=== PATIENT | female | born 1990 | race African-American/Black ===

== ENCOUNTER 2021-03-14 11:36 | Outpatient (CLI) | payer OTHER ==
[2021-03-18 11:26] VITALS: BP 90/40
--- NOTE | 2021-03-18 11:26 | SLEEP CARE CONSULTATION ---
Information from patient questionnaire entered by Jennifer Parmar. I have reviewed and concur with the information entered by Jennifer Parmar. This document represents the service I personally performed and the decisions made by me, Pedro Alexander MD, [facility]. History of Present Illness Service Date and Time: 03/14/2021 1136 Reason for Visit: New patient Chief Complaint: reports: Insomnia, Unrefreshed sleep, Fatigue, Frequent awakenings at night Date of Onset: on and off for 1.5 years Usual bedtime: 8 pm Time it takes to fall asleep: with sleep meds - 20 mins, without - hours/days Snores at night: Yes Observed to quit breathing while asleep: Yes Sleeps alone due to snoring: No Number of times waking at night: 2-4 Reasons for waking at night: reports: Pain, Bathroom, Other (unknown reasons) Toss, Turn, or Twitch while sleeping: Yes Recalls having dreams: No Usually gets out of bed at: 7:30 am Feels refreshed in the morning: No Morning headache: Yes Sleepy or fatigued during the day: Yes Ever fallen asleep while driving: Yes Takes day naps: Yes Dreams during day naps: No Prior sleep studies: No Additional HPI information: I have the pleasure of seeing Ms. Hamlin today regarding the possibility of her having obstructive sleep apnea. As you know, she is a 30 year old lady who complains of insomnia and excessive daytime sleepiness. She has had the problems for a year and a half. Her psychiatrist is treating her with trazodone 150 mg and hydroxyzine 25 mg at bedtime which is at 8 pm. She also takes Zoloft. She normally gets up at 7:30 am to be at work by 8 am. After she comes home from work at 3 pm, she would nap until dinner time. She then takes the sleeping pills and tries to go to bed again. She says that she does not want to take the pills later because they make it more difficult for her to get up in the morning. She gets up the same time on the weekend. During the day she reports feeling sleepy. [place] Sleepiness Scale score is 15. She falls asleep at work but not while driving. She has been told that she snores loudly and irregularly at night. She has also been observed to stop breathing in her sleep. She sleeps alone. She can recall waking up on the average of 2 - 4 times during the night. Most of the time she wakes up because of having to use the bathroom and pain. She has never awakened because of her own snoring, choking, or having to gasp for air. There is a lot of tossing and turning in her sleep. Generally there is no recollection of dreams. No somniloquy (sleep talking) or somnambulism (sleep walking). She wakes up with headache has headache most of the time. She reports having impaired concentration during the day. 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 Patient is Single and lives in [place]. Have you smoked in the past 12 months: No Alcohol use: Yes Alcohol amount and frequency: 1-2 drinks on special occasions, rarely Caffeine use: Yes Caffeine amount and frequency: 1-3 drinks, rarely or special occasions Family History Family history of sleep disordered breathing: Yes Family Hx Sleep Apnea: Mother: Snoring, Grandparent: Sleep apnea - Treated Allergies and Home Medications Drug allergies reviewed: Yes Home medication list reviewed: Yes (lisinopril, trazodone, hydroxyzine, Zoloft, Wellbutrin, Trulance, and BCP) Review of Systems Weight gain over past 5 years: 25 Weight loss over past 5 years: 25 Cardiovascular: reports: high blood pressure Respiratory: denies: shortness of breath, wheeze, sputum production, chronic cough, other Gastrointestinal: reports: diarrhea, abdominal pain Urinary: denies: incontinence, frequency, urgency, impotence, other Neurological: reports: headaches, head trauma, fainting or unconsciousness Psychiatric: reports: anxiety, depression Ear/Nose/Throat: reports: nasal congestion, sinus problems, dry mouth/throat, wisdom teeth removed Endocrine: reports: sluggishness, too hot or cold, excessive thirst, increased urination, other (loss of appetite) Musculoskeletal: reports: neck pain, back pain, muscle pain or cramping, mobility problems Immunologic: reports: sneezing, allergies to food or environment (environment) Physical Exam Vital signs obtained and entered by: Dr. Alexander Blood Pressure: 90/40 Cuff size: regular Heart Rate: 77 O2 Saturation: 99 Height: 6 ft Weight: 145 lb Body Mass Index: 19.6 BMI Classification: Healthy weight Neck circumference: 13 Mood/affect: Normal HEENT: No craniofacial malformation Nostrils: patent to airflow Turbinates: normal Septum: midline Mouth and throat: normal Soft palate: normal Hard palate: normal Uvula: normal Uvula visualization: 100% Mallampati Class I Tongue: normal in size Tonsils: small Chin and jaw: normal size and position Neck: normal w/o lymphadenopathy or thyromegaly Heart: regular rate and rhythm Lungs: clear bilaterally Extremities: no edema or clubbing Neurologic: intact, no focal deficits Impression and Plan IMPRESSION: 1. Insomnia, most likely due to mental disorderdepression. This patient spends all her free time in bed, and, therefore, is unable to sleep half of the time. Counseling will be more beneficial than using medication. The patient was advised to not spend more than 8 hours in bed a day. If she gets up at 7:30 am, she must not go to bed until 11:30 pm. Most likely, by that time she will be quite sleepy on her own, especially if she avoids napping during the day. A sleep study will be performed to rule out sleep disrupting conditions. Plan: 1. Schedule polysomnography and return in 1 to 2 weeks after the study to discuss result and initiate therapy. 2. Maintain a regular wake up time and spend no more than 8 hours in bed at night. Avoid naps. If she gets up at 7:30 am, then she must not go to bed until 11:30 pm. 3. Once a regular sleep-wake pattern is achieved, she should be weaned off the sleeping pills. 4. Further counseling and cognitive behavior therapy (CBT) per her psychiatrist and psychologist. Follow up with: Other (psychiatrist) Visit Type: In Office Time Spent with Patient (minutes): 15 Provider Statement: I spent 100% of the Face to Face Visit with the patient with greater than 50% spent counseling the patient and coordination of care.
== END 2021-03-14 11:37 | disposition home or self-care (01) ==
LOC: SC 11:36
PROVIDERS: ATTEND Internal Medicine Pulmonary Disease
DX: G47.00 Insomnia, unspecified (principal)
CPT/HCPCS: 99202; 99212

== ENCOUNTER 2021-05-27 13:56 | Outpatient (CLI) | payer OTHER | END 2021-05-27 13:57 | disposition home or self-care (01) | LOC: SC 13:56 | PROVIDERS: ATTEND Internal Medicine Pulmonary Disease | DX: G47.00 Insomnia, unspecified (principal) | CPT/HCPCS: 95806 ==

== ENCOUNTER 2021-06-13 15:13 | Outpatient (CLI) | payer OTHER ==
[2021-06-13 22:29] VITALS: BP 132/85
--- NOTE | 2021-06-13 22:29 | SLEEP CARE CONSULTATION ---
Information from patient questionnaire entered by Derrick Arboleda. I have reviewed and concur with the information entered by Derrick Arboleda. This document represents the service I personally performed and the decisions made by me, Pedro Alexander MD, [facility]. History of Present Illness Service Date and Time: 06/13/2021 1513 Initial [place] Sleepiness Scale score: 15 (in 2020) Current [place] Sleepiness Scale score: 18 (in 2020) Additional HPI information: Ms. Hamlin returned for follow up of the home sleep apnea test (HSAT) she had on 05/27/2021. The test showed that no significant sleep disordered breathing. The AHI was 1.9 and abiodun oxygen saturation, 87% with less than a minute of oxygen saturation < 90%. The test was of good quality and lasted more than 9 hours. The patient was informed of these findings. I explained to her that the test was normal but it confirms her excessive time spent in bed. Sleep Study - Results Type of Sleep Study: Home sleep study Prior sleep studies: No Allergies and Home Medications Drug allergies reviewed: Yes Home medication list reviewed: Yes Review of Systems Review of systems same as previous: Yes Physical Exam Blood Pressure: 132/85 Heart Rate: 88 O2 Saturation: 98 Height: 5 ft 10 in Weight: 151 lb Body Mass Index: 21.7 BMI Classification: Healthy weight Impression and Plan IMPRESSION: 1. Insomnia, due to underlying psychiatric disorders. The patient reports improvement in her insomnia by going to bed later at 11 pm and waking up at 7 am. She even stopped taking her sleep aid a few nights. However, she complains of daytime sleepiness at work. Interestingly, she is not sleepy on the weekends. The daytime sleepiness may be due to the residual insomnia. Once she regularly sleeps through the night, then the daytime sleepiness should resolve. If not, further evaluation with a multiple sleep latency test (MSLT) will be considered. . PLAN: 1. Consider further evaluation with multiple sleep latency test (MSLT) if she continues to be sleepy despite getting normal amount of sleep at night. However, for the test, she has to be off all psychotropic meds for at least two weeks. 2. Continue to maintain the tight sleep-wake schedule and limit time spent in bed to not more than 8 hours. Avoid naps. 3. Return for follow up after on as needed basis. Follow up with Sleep Care in: as needed Visit Type: In Office Time Spent with Patient (minutes): 15 Provider Statement: I spent 100% of the Face to Face Visit with the patient with greater than 50% spent counseling the patient and coordination of care.
== END 2021-06-13 15:14 | disposition home or self-care (01) ==
LOC: SC 15:13
PROVIDERS: ATTEND Internal Medicine Pulmonary Disease
DX: F51.05 Insomnia due to other mental disorder (principal)
CPT/HCPCS: 99212

== ENCOUNTER → 2021-11-07 | Outpatient (CLI) | payer OTHER ==
--- NOTE | 2021-11-07 12:57 | XRAY Report ---
PROCEDURE: Chest 2 View X-Ray INDICATIONS: ACUTE COVID-19 TECHNIQUE: 2 view(s) of the chest. COMPARISON: None. FINDINGS: Surgical changes and devices: None. Lungs and pleura: No pleural effusions or pneumothorax. Lungs are clear. Mediastinum: Mediastinal contours are normal. Heart size is normal. Bones and chest wall: No suspicious bony abnormalities. Soft tissues appear unremarkable. IMPRESSION: No acute pulmonary process. Reviewed by: Marcie Lutz MD on 11/07/2021 12:55 PM [facility] Approved by: Marcie Lutz MD on 11/07/2021 12:55 PM [facility] Station ID: [id number]
== END ==
LOC: DI.N 08:21
PROVIDERS: ATTEND Nurse Practitioner
DX: U07.1 COVID-19 (principal)

== ENCOUNTER 2022-02-14 13:03 | Outpatient (CLI) | payer OTHER ==
[2022-02-14 17:38] LABS: BASOPHILS # (AUTO) 0.1 10^3/uL (0.0-0.1); BASOPHILS % (AUTO) 0.6 %; EOSINOPHILS # (AUTO) 0.1 10^3/uL (0.0-0.7); EOSINOPHILS % (AUTO) 0.8 %; HCT - HEMATOCRIT 38.3 % (37.0-47.0); HGB - HEMOGLOBIN 12.8 g/dL (12.0-16.0); LYMPHOCYTES # (AUTO) 1.6 10^3/uL (1.5-3.5); LYMPHOCYTES % (AUTO) 18.6 %; MEAN CORPUSCULAR HEMOGLOBIN 27.9 pg (27.0-31.0); MEAN CORPUSCULAR HGB CONC 33.4 g/dL (32.0-36.0); MEAN CORPUSCULAR VOLUME 83.4 fL (81.0-99.0); MEAN PLATELET VOLUME 11.4 fL (7.9-10.8); MONOCYTES # (AUTO) 0.5 10^3/uL (0.0-1.0); MONOCYTES % (AUTO) 6.2 %; NEUTROPHILS # (AUTO) 6.2 10^3/uL (1.5-6.6); NEUTROPHILS % (AUTO) 73.4 %; PLT - PLATELET COUNT 271 10^3/uL (130-450); RED BLOOD COUNT 4.59 10^6/uL (4.20-5.40); WHITE BLOOD COUNT 8.4 x10^3/uL (4.8-10.8)
[2022-02-14 17:54] LABS: ALBUMIN 4.3 g/dL (3.2-5.5); ALBUMIN/GLOBULIN RATIO 1.2 (1.0-2.2); BILIRUBIN,TOTAL 0.7 mg/dL (0.2-1.0); CALCIUM 9.7 mg/dL (8.5-10.3); CREATININE 1.3 mg/dL (0.4-1.0); POTASSIUM 3.8 mmol/L (3.5-5.0); TOTAL PROTEIN 7.9 g/dL (6.7-8.2)
== END 2022-02-14 13:04 | disposition home or self-care (01) ==
LOC: LAB.N 13:03
PROVIDERS: ATTEND Family Medicine
DX: R11.2 Nausea with vomiting, unspecified (principal); R23.8 Other skin changes; R19.7 Diarrhea, unspecified
CPT/HCPCS: 36415; 80053; 85025